=== PATIENT | female | born 1930 | race Two or more races ===

== ENCOUNTER 2017-06-18 09:28 | Outpatient (CLI) | payer OTHER ==
[~2017-06-18 09:28] MED LIST: CRESTOR5 MG PO; DIOVAN160 M1 PO
== END 2017-06-18 10:27 | disposition home or self-care (01) ==
LOC: RAD 501 09:28
DX: M54.5 Low back pain (principal)

== ENCOUNTER → 2018-05-20 | Outpatient (CLI) | payer OTHER ==
[~2018-05-20] VITALS: Ht 157.5 cm; Wt 45.4 kg
== END | disposition home or self-care (01) ==
LOC: OFIC 805 08:57
DX: J30.89 Other allergic rhinitis (principal); H61.23 Impacted cerumen, bilateral

== ENCOUNTER 2018-07-11 07:44 | Outpatient (CLI) | payer OTHER ==
[~2018-07-11] VITALS: Ht 152.4 cm; Wt 45.4 kg
== END 2018-07-11 08:00 | disposition home or self-care (01) ==
LOC: OFIC 805 07:44
DX: J30.89 Other allergic rhinitis (principal)

== ENCOUNTER 2018-09-16 12:31 | Outpatient (CLI) | payer OTHER ==
[~2018-09-16] VITALS: Ht 152.4 cm; Wt 45.4 kg
== END 2018-09-16 12:45 | disposition home or self-care (01) ==
LOC: OFIC 805 12:31
DX: J30.89 Other allergic rhinitis (principal); H61.22 Impacted cerumen, left ear; M26.69 Other specified disorders of temporomandibular joint

== ENCOUNTER → 2020-04-14 | Outpatient (CLI) | payer OTHER | END | disposition home or self-care (01) | LOC: OFIC 805 09:15 | PROVIDERS: ATTEND Otolaryngology | DX: H93.8X3 Other specified disorders of ear, bilateral (principal); H61.22 Impacted cerumen, left ear ==